=== PATIENT | female | born 2005 | race Caucasian/White ===

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

== ENCOUNTER 2025-01-05 17:08 | Emergency (ER) | payer OTHER ==
[~2025-01-05] VITALS: Ht 170.2 cm; Wt 50.0 kg
[~2025-01-05 17:08] MED LIST changes: +OLAN-38 PO
[2025-01-05 17:10] VITALS: PULSE 71; RESP 18; TEMP 98.2; O2SAT 96
[2025-01-05 17:38] LABS: MEAN PLATELET VOLUME 10.1 FL (7.4-10.4); RED CELL DISTRIBUTION WIDTH 12.2 % (11.5-14.5)
[2025-01-05 17:46] LABS: CREATININE 0.81 MG/DL (0.40-0.90); TOTAL CARBON DIOXIDE 19.5 MMOL/L (24-32); eCRCL 88 ML/MIN; eGFR > 90 ML/MIN
--- NOTE | 2025-01-05 18:21 | ELECTROCARDIOGRAPH REPORT ---
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
== END 2025-01-05 20:15 | disposition left against medical advice (07) ==
LOC: ER 17:09
DX: R10.84 Generalized abdominal pain (principal); Z88.8 Allergy status to other drugs, medicaments and biological substances; Z53.21 Procedure and treatment not carried out due to patient leaving prior to being seen by health care provider
CPT/HCPCS: 36415; 80053; 83690; 85025; 93005